=== PATIENT | male | born 1990 | race Caucasian/White ===

== ENCOUNTER 2017-11-02 15:12 | Emergency (ER) | payer MEDICAID ==
[~2017-11-02] VITALS: Ht 185.4 cm; Wt 81.1 kg
[~2017-11-02 15:12] MED LIST: CLIN300C85 PO; IBUP-1985 PO
[2017-11-02 15:45] VITALS: BP 134/78
[2017-11-02] MEDS ORDERED: LORazepam 2 mg/ml vial IM ONE (16:10)
[2017-11-02] MEDS ORDERED: LIDOcaine 1.5% w/epinephrine 1:200,000 5ml ampul IJ ONE (16:10)
[2017-11-02] MEDS ORDERED: LIDOcaine Viscous 15ml cup MM ONE (16:10)
[2017-11-02] MEDS ORDERED: ondansetron 4mg rapidly disintigrating tab PO ONE (16:15)
[2017-11-02] MEDS ORDERED: DOXY100C43 PO (17:50)
[2017-11-02] MEDS ORDERED: CefTRIAXone 1000mg IM Kit (w/lidocaine diluent) IM ONE (17:50)
[2017-11-02] MEDS ORDERED: HYDROcodone/acetaminophen 5mg/325mg tablet PO ONE (18:25)
== END 2017-11-02 18:30 | disposition home or self-care (01) ==
LOC: ER 15:12
DX: K04.7 Periapical abscess without sinus (principal); F12.90 Cannabis use, unspecified, uncomplicated; F15.90 Other stimulant use, unspecified, uncomplicated; Z56.0 Unemployment, unspecified; Z91.030 Bee allergy status
CPT/HCPCS: 41800; 96372; 99284; A6449; J0696; J2060; J3490

== ENCOUNTER 2017-12-03 14:41 | Emergency (ER) | payer MEDICAID ==
[~2017-12-03] VITALS: Ht 185.4 cm; Wt 76.0 kg
[2017-12-03 14:54] VITALS: BP 116/66
== END 2017-12-03 16:59 | disposition left against medical advice (07) ==
LOC: ER 14:42
DX: R21 Rash and other nonspecific skin eruption (principal); Z53.21 Procedure and treatment not carried out due to patient leaving prior to being seen by health care provider

== ENCOUNTER 2019-11-23 10:52 | Emergency (ER) | payer MEDICAID ==
[~2019-11-23] VITALS: Ht 185.4 cm; Wt 75.0 kg
[~2019-11-23 10:52] MED LIST changes: +CLIN-97 PO; -CLIN300C85 PO
[2019-11-23 11:15] VITALS: BP 122/77
[2019-11-23] MEDS ORDERED: AMOX-422 PO (11:52)
[2019-11-23] MEDS ORDERED: ondansetron 4mg rapidly disintigrating tab PO ONE (11:55)
[2019-11-23] MEDS ORDERED: HYDROcodone/acetaminophen 5mg/325mg tablet PO ONE (11:55)
== END 2019-11-23 12:14 | disposition home or self-care (01) ==
LOC: ER 10:52
DX: K65.1 Peritoneal abscess (principal); F12.90 Cannabis use, unspecified, uncomplicated; F15.90 Other stimulant use, unspecified, uncomplicated; Z72.89 Other problems related to lifestyle; Z56.0 Unemployment, unspecified
CPT/HCPCS: 99283

== ENCOUNTER 2021-04-21 07:33 | Emergency (ER) | payer MEDICAID ==
[~2021-04-21] VITALS: Ht 185.4 cm; Wt 80.9 kg
[2021-04-21 07:36] VITALS: BP 112/78
== END 2021-04-21 11:58 | disposition left against medical advice (07) ==
LOC: ER 07:33
DX: R22.1 Localized swelling, mass and lump, neck (principal); Z22.0 Carrier of typhoid

== ENCOUNTER 2022-05-19 22:42 | Emergency (ER) | payer MEDICAID ==
[~2022-05-19] VITALS: Ht 185.4 cm; Wt 79.5 kg
[2022-05-19 22:58] VITALS: BP 120/63
== END 2022-05-19 23:38 | disposition left against medical advice (07) ==
LOC: ER 22:43
DX: S61.211A Laceration without foreign body of left index finger without damage to nail, initial encounter (principal); Z53.21 Procedure and treatment not carried out due to patient leaving prior to being seen by health care provider; X58.XXXA Exposure to other specified factors, initial encounter; Y93.89 Activity, other specified; Y92.89 Other specified places as the place of occurrence of the external cause; Y99.8 Other external cause status

== ENCOUNTER 2024-12-08 19:52 | Emergency (ER) | payer MEDICAID ==
[~2024-12-08] VITALS: Ht 185.4 cm; Wt 77.7 kg
[2024-12-08 19:57] VITALS: BP 138/88; PULSE 115; RESP 17; TEMP 97.6; O2SAT 100
[2024-12-08] MEDS ORDERED: AMOX-100 PO (21:22)
[2024-12-08] MEDS ORDERED: IBUP-864 PO (21:22)
[2024-12-08] MEDS ORDERED: OFLO5DRO5 RIGHT EAR (21:22)
--- NOTE | 2024-12-08 21:23 | Physician Documentation ---
History of Present Illness ~ Chief Complaint: Ear Pain Stated Complaint: EAR PAIN Time Seen by MD: 20:58 Primary Medical Doctor: ROBERTA HPI 34-year-old with complaints of right ear pain x2 days no discharge no decreased hearing has been swimming Medication Reconciliation Allergies: Uncoded Allergies: BEE STING (Allergy, Unknown, ANAPHYLAXIS, 11/02/17) Scheduled Clindamycin HCL* (Clindamycin HCL*), 1 CAP PO Q6H Ibuprofen (Ibuprofen), 1 TAB PO Q8H Past Medical History Past Medical History: No Pertinent History Past Surgical History: noncontributory Alcohol Use: Occasionally Drug Use: marijuana, methamphetamine Lives with: Family Lives In: Home Occupation: unemployed Review of Systems All Other Systems at this time: Reviewed and Negative ENT: Reports: see HPI Physical Exam Vital Signs: RN Vital Signs have been reviewed: Yes, Temperature: 97.6, Source: Oral, Heart Rate: 115, Respiratory Rate: 17, BP: 138/88, Pulse Oximetry: 100, Weight: 77.700 Oxygen Flow Rate: 0 Physical Exam General: Alert, no apparent distress. HEENT: PERRL, EOMI, no injection, moist mucous membranes. Erythema to right external canal as well as tympanic membrane. TM intact Neck: Full range of motion. Respiratory: Lungs clear, no respiratory distress. Chest: No accessory muscle use. Cardiovascular: Regular rate and rhythm, no murmurs. Neurologic: Oriented x4. Psychiatric: Normal mood and affect. Skin: Normal color, warm and dry. No edema, no ecchymosis. Progress Results/Orders Results/Orders Vital Signs 12/08/24 19:57 Temp 97.6 Pulse 115 Resp 17 B/P (MAP) 138/88 Pulse Ox 100 O2 Flow Rate 0 Medical Decision Making Findings Has been swimming although with erythema extending from external canal to tympanic membrane otitis externa versus otitis media antibiotics prescribed chad mortensen to follow up with primary care Departure Time of Disposition: 21:21 Disposition: 01 HOME / SELF CARE / HOMELESS Impression: Primary Impression: Otitis media Condition: Stable Discharge Instructions: Otitis Media, Adult Additional Instructions: Take antibiotics as prescribed follow up with primary care or urgent care as needed take Tylenol or ibuprofen for [id number] pain or fevers Referrals: NO PRIMARY CARE PROVIDER (PCP) Prescriptions Ofloxacin (Ofloxacin) 0.3 % Drops 5 DROP RIGHT EAR Q12H, #5 ML 0 Refills Prov: BEVERLY,KATY K [employer]IPPER 12/08/24 Amoxicillin Trihydrate (Amoxicillin) 500 Mg Capsule 1 CAP PO Q12H for 10 Days, #20 CAP Prov: KATY MASSEY [employer]PER 12/08/24 Ibuprofen (Ibu) 800 Mg Tablet 1 TAB PO Q8H for 7 Days, #21 TAB 0 Refills Prov: KATY MASSEY NP 12/08/24 Education Educated: Patient Educated regarding: diagnosis, treatment, need for follow up Signature Scribe Signature: No scribe Attestation: The note accurately reflects work and decisions made by me.Katy Massey - MICHELLE 12/08/24 21:22 KATY MASSEY NP Dec 08, 2024 21:23
[2024-12-08] MEDS: ibuprofen tablet 400 MG TABLET PO ONE (21:29)
== END 2024-12-08 21:34 | disposition home or self-care (01) ==
LOC: ER 19:53
DX: H66.91 Otitis media, unspecified, right ear (principal)
CPT/HCPCS: 99283

== ENCOUNTER 2025-05-04 13:43 | Emergency (ER) | payer MEDICAID ==
[~2025-05-04] VITALS: Ht 185.4 cm; Wt 85.8 kg
[~2025-05-04 13:43] MED LIST changes: +CLIN-224 PO; -CLIN-97 PO; -IBUP-1985 PO; +IBUP-864 PO; +IBUP600T52 PO; +OFLO5DRO5 RIGHT EAR
[2025-05-04 16:11] VITALS: TEMP 97.5
[2025-05-04] MEDS ORDERED: PERM60CR27 TOP (17:56)
[2025-05-04] MEDS ORDERED: TRIA15CR61 TOP (17:56)
--- NOTE | 2025-05-04 17:56 | Physician Documentation ---
History of Present Illness ~ Chief Complaint: Rash Stated Complaint: RASH Time Seen by MD: 16:10 OK to notify your PCP?: Yes Primary Medical Doctor: NONE Source: patient, RN/ HPI Patient is seen today with complaints of a rash in his upper body stating he has previously had scabies in feels this is very similar in his concerned for repeat scabies infection. Patient states he works or stays at the [employer] and denies any known sick contacts. He has no other concern or complaint at this time. Medication Reconciliation Allergies: Coded Allergies: No Known Allergies (Unverified , 05/04/25) Scheduled Clindamycin HCL* (Clindamycin HCL*), 1 CAP PO Q6H Ibuprofen (Ibuprofen), 1 TAB PO Q8H Ibuprofen (Ibu), 1 TAB PO Q8H Ofloxacin (Ofloxacin), 5 DROP RIGHT EAR Q12H Past Medical History Past Medical History: No Pertinent History Past Surgical History: noncontributory Alcohol Use: Occasionally Drug Use: marijuana, methamphetamine Lives with: Family Lives In: Home Occupation: unemployed Review of Systems Constitutional: Denies: chills, fever, weakness Eyes: Denies: pain, blurred vision ENT: Denies: ear pain, nose pain, throat pain, mouth pain Respiratory: Denies: cough, shortness of breath Cardiovascular: Denies: chest pain, palpitations Gastrointestinal: Denies: abdominal pain, nausea, vomiting Genitourinary: Denies: burning, dysuria Male Genitalia: Denies: penile discharge, testicular pain Neurological: Denies: headache, dizziness Musculoskeletal: Denies: pain, swelling Integumentary: Denies: rash, lesions Allergic/Immunologic: Denies: hives, itching Hematologic/Lymphatic: Denies: no symptoms reported Psychiatric: Denies: depression, anxiety Physical Exam Vital Signs: Temperature: 97.5, Source: Temporal, Heart Rate: 70, Respiratory Rate: 18, BP: 136/89, Pulse Oximetry: 99, Weight: 85.800 Oxygen Flow Rate: 0 Physical Exam General: Awake and Alert, no acute distress. HEENT: Conjunctiva pink, Sclera clear, Mucus Membranes moist. Neck: Supple without masses and tenderness. Resp: Unlabored. Lungs clear to auscultation bilaterally. Heart: Regular Rate and rhythm, normal S1 and S2 without murmur, rub or gallop. Abdomen: Soft and non tender no organomegaly Extremities: No cyanosis,clubbing or edema. Skin: Patient on exam does have excoriations and excoriated papules scattered across his upper chest and upper back around the collar area. He does have very few scattered on the volar aspect of his wrists. I do not appreciate any lesions in the webspaces of the hands. No sign of secondary bacterial infection at this time no sign of abscess. Progress Results/Orders Results/Orders Vital Signs 05/04/25 05/04/25 14:06 16:11 Temp 97.5 97.5 Pulse 78 70 Resp 16 18 B/P (MAP) 117/56 136/89 (105) Pulse Ox 99 99 O2 Flow Rate 0 0 Medical Decision Making Additional information obtaine: N/A Findings Patient is seen today with complaints of a rash in his upper body stating he has previously had scabies in feels this is very similar in his concerned for repeat scabies infection. Patient states he works or stays at the [employer] and denies any known sick contacts. He has no other concern or complaint at this time. Patient given prescription for permethrin and topical steroid to be used as directed. Patient will follow up with primary care in 5-10 days if no better as needed sooner. Return to ED with any worsening, concerning or changing symptoms. Differential Dx:Considerations: Include: Herpes zoster, Psoriaisis, Scabies, Tinea, Urticaria, Varicella Departure Disposition: HOME / SELF CARE / HOMELESS Impression: Primary Impression: Scabies Condition: Stable Discharge Instructions: Scabies, Adult Additional Instructions: Patient given prescription for permethrin and topical steroid to be used as directed. Patient will follow up with primary care in 5-10 days if no better as needed sooner. Return to ED with any worsening, concerning or changing symptoms. Referrals: NO PRIMARY CARE PROVIDER (PCP) Prescriptions Triamcinolone Acetonide 0.5% Crm* (Kenalog 0.5% Crm*) 15 Gm Tube 1 APPLIC TOP Q12H for 30 Days, #30 GM apply to affected area(s) Prov: RONNY JEFFREY PAC 05/04/25 Permethrin 5% Cream* (Elimite 5% Cream*) 60 Gm Cream.gm. 1 APPLIC TOP ONCE, #60 GM massage into skin from head to soles of feet one time, leave on for 8-14 hours then remove by thorough washing Prov: RONNY JEFFREY 05/04/25 Signature Scribe Signature: No scribe Attestation: No scribe RONNY JEFFREY May 04, 2025 17:56
[2025-05-04 18:06] VITALS: BP 134/68; PULSE 74; RESP 18; O2SAT 98
== END 2025-05-04 18:10 | disposition home or self-care (01) ==
LOC: ER 13:43
DX: B86 Scabies (principal); F12.90 Cannabis use, unspecified, uncomplicated; F15.90 Other stimulant use, unspecified, uncomplicated
CPT/HCPCS: 99283